=== PATIENT | male | born 1980 | race Caucasian/White ===

== ENCOUNTER 2024-06-17 22:54 | Emergency (ER) | payer MEDICAID ==
[~2024-06-17] VITALS: Ht 180.3 cm; Wt 87.0 kg
[2024-06-17 23:16] VITALS: O2SAT 100
[2024-06-18] MEDS: CYCLOBENZAPRINE 10MG TABLET PO ONE (00:45)
[2024-06-18] MEDS: KETOROLAC 15MG/ML VIAL IM ONE (00:46)
[2024-06-18] MEDS: LIDOCAINE 5% PATCH TOP SCH (00:48)
[2024-06-18] MEDS ORDERED: NAPR-1176 MT (01:02)
[2024-06-18] MEDS ORDERED: CYCL5TAB3 MT (01:02)
[2024-06-18] MEDS ORDERED: LIDO700A15 TP (01:02)
[2024-06-18 01:11] VITALS: BP 124/85; PULSE 70; RESP 18; TEMP 36.8; O2SAT 100
== END 2024-06-18 01:12 | disposition home or self-care (01) ==
LOC: ER 22:54
DX: M54.89 Other dorsalgia (principal); Z79.1 Long term (current) use of non-steroidal anti-inflammatories (NSAID); W01.0XXA Fall on same level from slipping, tripping and stumbling without subsequent striking against object, initial encounter; Y93.01 Activity, walking, marching and hiking; Y92.89 Other specified places as the place of occurrence of the external cause; Y99.8 Other external cause status
CPT/HCPCS: 99283; 96372; J1885